=== PATIENT | male | born 1990 | race Two or more races ===

== ENCOUNTER 2017-08-13 02:31 | Emergency (ER) | payer OTHER ==
[~2017-08-13] VITALS: Ht 180.3 cm; Wt 118.4 kg
[2017-08-13] MEDS ORDERED: NKM (02:39)
[2017-08-13 02:40] VITALS: BP 154/69
[2017-08-13] MEDS ORDERED: HYDROCODON-ACE1 EA15 ORAL (02:58)
[2017-08-13] MEDS ORDERED: IBUPROFEN600 MG ORAL (02:58)
--- NOTE | 2017-08-13 02:59 | Emergency Room Report ---
History of Present Illness General Chief Complaint: Lower Back Pain or Injury Source: Patient Present Illness HPI Is a 27-year-old male presents with chief complaint of back pain. He works as a елена at a nearby grocery store. He was lifting cases of water and as he was turning to place it down he felt pain to her lower back. No trauma. Did not fall. Pain is 8/10. Worse with movement. Denies any fever chills denies any nausea vomiting. No incontinence of bowel or urine. Allergies: Coded Allergies: No Known Allergies (Unverified , 08/13/17) Patient History Past Medical History: none Past Surgical History: none Pertinent Family History: none Social History: Denies: smoking Immunizations: other Reviewed Nursing Documentation: PMH: Agreed, PSxH: Agreed Nursing Documentation-PMH Past Medical History: No Stated History Review of Systems Eye: Denies: eye pain, blurred vision ENT: Denies: ear pain, nose congestion, throat swelling Respiratory: Denies: cough, shortness of breath Cardiovascular: Denies: chest pain, palpitations Gastrointestinal: Denies: abdominal pain, diarrhea, nausea, vomiting Musculoskeletal: Reports: back pain, Denies: joint pain Skin: Denies: rash Neurological: Denies: headache, numbness Endocrine: Denies: increased thirst, increased urine Hematologic/Lymphatic: Denies: easy bruising All Other Systems: negative except mentioned in HPI Physical Exam Vital Signs Date Time Temp Pulse Resp B/P (MAP) Pulse Ox O2 Delivery O2 Flow Rate FiO2 08/13/17 02:34 98.2 89 16 154/69 98 vitals unremarkable Sp02 EP Interpretation: reviewed, normal General Appearance: well appearing, no apparent distress, alert Head: normocephalic, atraumatic Eyes: bilateral eye PERRL, bilateral eye EOMI ENT: hearing grossly normal, normal pharynx Neck: full range of motion, supple, no meningismus Respiratory: chest non-tender, lungs clear, normal breath sounds Cardiovascular #1: regular rate, rhythm, no murmur Gastrointestinal: normal bowel sounds, non tender, no mass, no organomegaly, no bruit, non-distended Musculoskeletal: back normal - Lower lumbar tenderness. no step off., gait/ station normal, normal range of motion Psychiatric: mood/affect normal Skin: warm/dry Medical Decision Making Diagnostic Impression: Primary Impression: Low back pain Qualified Codes: M54.5 - Low back pain ER Course Patient presents with lumbar strain. No evidence any fracture or dislocation. No evidence of cauda equina syndrome, spinal after abscess or neoplastic process. I see no need for x-rays. Last Vital Signs Date Time Temp Pulse Resp B/P (MAP) Pulse Ox O2 Delivery O2 Flow Rate FiO2 08/13/17 02:34 98.2 89 16 154/69 98 Status: improved Disposition: HOME, SELF-CARE Condition: Stable Scripts Ibuprofen* (MOTRIN*) 600 Mg Tablet 600 MG ORAL THREE TIMES A DAY, #30 TAB 0 Refills Prov: AYUSH TORRES M.D. 08/13/17 Hydrocodone/Acetaminophen 5-325* (HYDROCODONE/ACETAMINOPHEN 5-325*) 1 Each Tablet 1 TAB ORAL Q6H Y for For Pain, #15 TAB 0 Refills Prov: AYUSH TORRES M.D. 08/13/17 Patient Instructions: Lumbosacral Strain Additional Instructions: No heavy lifting. Followup with your employer in one to 2 days for referred to see Worker's Comp. Return If symptom worsen. AYUSH TORRES M.D. Aug 13, 2017 02:59
[2017-08-13] MEDS ORDERED: Norco 5mg/325mg tab ORAL ONE (03:00)
[2017-08-13 03:05] VITALS: BP 154/69
== END 2017-08-13 03:03 | disposition home or self-care (01) ==
LOC: EMR 02:57
DX: M54.5 Low back pain (principal)
CPT/HCPCS: 99284